=== PATIENT | female | born 1960 | race Caucasian/White ===

== ENCOUNTER 2017-09-23 00:30 | Emergency (ER) | payer MEDICAID ==
[~2017-09-23] VITALS: Ht 154.9 cm; Wt 62.4 kg
[2017-09-23 00:36] VITALS: BP 137/70; PULSE 71; RESP 18; TEMP 97.6; O2SAT 97
--- NOTE | 2017-09-23 02:03 | PD ---
HPI . Wrist pain Chief Complaint: Injury Time Seen by Provider: 01:45 Travel History International Travel<30 days: No Contact w/Intl Traveler<30days: No History of Present Illness HPI This patient presents with a chief complaint of left wrist pain. Onset was 3 months ago. She states that the only reason that she came tonight was because she just found out that she still has Medicaid. Pain is exacerbated by pronation and supination. Pain is rated 5/10. Review of Systems Except as stated in HPI: all other systems reviewed are Neg Musculoskeletal: Positive: Arthralgias, Limited ROM Physical Exam Narrative GENERAL: Awake and alert and in no acute distress. SKIN: Warm and dry. Normal color. HEAD: Normocephalic/atraumatic. EYES: Pupils are equal. Extraocular movements are intact. NECK: Normal range of motion. CARDIOVASCULAR: Regular rate and rhythm. RESPIRATORY: Nonlabored respirations. MUSCULOSKELETAL: Left wrist has no swelling or deformity. Distally neurovascularly intact. NEUROLOGICAL: Nonfocal. PSYCHIATRIC: Appropriate mood and affect. Data Data Last Documented VS Vital Signs Date Time Temp Pulse Resp B/P (MAP) Pulse Ox O2 Delivery O2 Flow Rate FiO2 09/23/17 00:36 97.6 71 18 137/70 (92) 97 MDM Medical Screen Exam Complete: Yes Emergency Medical Condition: No Narrative Course A medical screening exam was performed: At the time of evaluation the presenting medical condition was determined not to be of an emergent nature. The patient was given the option of receiving additional care, but declined. Patient was given options for additional community resources from which to obtain care. The Patient Has Been advised to seek medical attention for their presenting complaint. The patient has been advised to return to the ER at any time if an emergent condition develops. Primary Impression: Encounter for medical screening examination Condition: Stable Trisha Chavarria MD Sep 23, 2017 02:03
== END 2017-09-23 03:07 | disposition left against medical advice (07) ==
LOC: PHED 00:30
DX: M25.532 Pain in left wrist (principal)
CPT/HCPCS: 99281